=== PATIENT | female | born 1990 | race Caucasian/White ===

== ENCOUNTER 2020-07-15 03:16 | Outpatient (CLI) | payer MEDICAID ==
[2020-07-15 03:35] LABS: APPEARANCE,URINE SLIGHTLY-CLOUDY; BILIRUBIN,URINE NEGATIVE (NEGATIVE); COLOR,URINE YELLOW; GLUCOSE, URINE NEGATIVE (NEGATIVE); KETONES,URINE NEGATIVE (NEGATIVE); LEUKOCYTE ESTERASE,URINE NEGATIVE (NEGATIVE); NITRITE,URINE NEGATIVE (NEGATIVE); PROTEIN,URINE NEGATIVE (NEGATIVE); URINE SPECIFIC GRAVITY 1.006; UROBILINOGEN,URINE NEGATIVE mg/dL (<2.0)
[2020-07-15 04:08] LABS: URINE AMPHETAMINES SCREEN NEGATIVE; URINE BARBITURATES SCREEN NEGATIVE; URINE BENZODIAZEPINES SCREEN NEGATIVE; URINE COCAINE SCREEN NEGATIVE; URINE MARIJUANA (THC) SCREEN NEGATIVE; URINE METHADONE SCREEN NEGATIVE; URINE PHENCYCLIDINE SCREEN NEGATIVE
--- NOTE | 2020-07-15 06:06 | Non Stress Test Report ---
Non Stress Test Datetime Report Generated by CPN: 07/15/2020 06:06 DEMOGRAPHIC EGA NST: 40.1 INDICATION Indication for Study (NST) Other: false labor MONITORING Monitor Explained: Monitor Explained; Test Explained; Patient Verbalized Understanding Time on Monitor: 07/15/2020 03:33 Time off Monitor: 07/15/2020 04:27 NST Duration: 54 NST INTERVENTIONS NST Interventions: PO Hydration Physician Notified NST: Dr. Rene BABY A: [id number] BABY A Movement : Present Contraction Frequency : 3-5 FHR Baseline : 130 Accelerations : 15X15 Decelerations : None Variability : Moderate 6-25bpm NST Review: Meets Criteria for Reactive NST NST Review and Verified By : Alpesh Bellavancdiane RN NST Results: Reactive NST REPORT Report Trigger: Send Report
== END 2020-07-15 05:57 | disposition home or self-care (01) ==
LOC: LC 03:16
PROVIDERS: ATTEND Obstetrics & Gynecology
DX: O47.1 False labor at or after 37 completed weeks of gestation (principal); Z3A.40 40 weeks gestation of pregnancy
CPT/HCPCS: 80307; 81005

== ENCOUNTER 2020-07-18 08:34 | Inpatient (IN) | payer MEDICAID ==
[2020-07-18] MEDS ORDERED: ONDANSETRON HCL INJ/PF 4 MG/2 ML SDV ONE (09:31)
[2020-07-18 09:33] LABS: APPEARANCE,URINE SLIGHTLY-CLOUDY; BILIRUBIN,URINE NEGATIVE (NEGATIVE); COLOR,URINE YELLOW; GLUCOSE, URINE NEGATIVE (NEGATIVE); KETONES,URINE NEGATIVE (NEGATIVE); LEUKOCYTE ESTERASE,URINE TRACE (NEGATIVE); NITRITE,URINE NEGATIVE (NEGATIVE); PROTEIN,URINE NEGATIVE (NEGATIVE); URINE SPECIFIC GRAVITY 1.011; UROBILINOGEN,URINE NEGATIVE mg/dL (<2.0)
[2020-07-18 09:57] LABS: URINE AMPHETAMINES SCREEN NEGATIVE; URINE BARBITURATES SCREEN NEGATIVE; URINE BENZODIAZEPINES SCREEN NEGATIVE; URINE COCAINE SCREEN NEGATIVE; URINE MARIJUANA (THC) SCREEN NEGATIVE; URINE METHADONE SCREEN NEGATIVE; URINE PHENCYCLIDINE SCREEN NEGATIVE
[2020-07-18] MEDS ORDERED: ONDANSETRON HCL INJ/PF 4 MG/2 ML SDV IV ONE (10:00)
[2020-07-18] MEDS ORDERED: RINGERS SOLUTION,LACTATED 1,000 ML IV ONE (10:00)
[2020-07-18] MEDS ORDERED: NALBUPHINE HCL INJ 10 MG/1 ML AMPULE ONE (10:26)
[2020-07-18] MEDS ORDERED: PROMETHAZINE HCL INJ 25 MG/1 ML VIAL ONE (10:26)
[2020-07-18] MEDS ORDERED: PROMETHAZINE HCL INJ 25 MG/1 ML VIAL IV ONE (11:03)
[2020-07-18] MEDS ORDERED: NALBUPHINE HCL INJ 10 MG/1 ML AMPULE IV ONE (11:03)
[2020-07-18] MEDS ORDERED: RINGERS SOLUTION,LACTATED 500 ML IV ONE (12:58)
[2020-07-18] MEDS ORDERED: MISOPROSTOL 0.2 MG TABLET ONE (13:19)
[2020-07-18] MEDS ORDERED: OXYTOCIN 10 UNIT/ML VIAL ONE (13:19)
[2020-07-18] MEDS ORDERED: LIDOCAINE 1% INJ-PF (10 MG/ML) 30 ML SDV ONE (13:19)
[2020-07-18] MEDS ORDERED: OXYTOCIN/0.9 % SODIUM CHLORIDE 30 UNIT/500 ML RTUINJ ONE (13:20)
[2020-07-18] MEDS ORDERED: ROPIVACAINE HCL 0.2% INJ/PF (2 MG/ML) 20 ML SDV ONE ×2 (13:20→14:39)
[2020-07-18] MEDS ORDERED: FENTANYL/BUPIVACAINE/NS/PF 300 MCG/150 ML RTUINJ EPI ONE (13:20)
[2020-07-18] MEDS ORDERED: EPHEDRINE SULFATE INJ 50 MG/1 ML AMPULE ONE (13:20)
[2020-07-18 13:23] LABS: ABSOLUTE BASOPHILS # (AUTO) 0.1 10^3/uL (0.0-0.2); ABSOLUTE EOSINOPHILS # (AUTO) 0.1 10^3/uL (0.0-0.6); ABSOLUTE LYMPHOCYTES (AUTO) 0.8 10^3/uL (0.5-4.7); ABSOLUTE MONOCYTES (AUTO) 0.5 10^3/uL (0.1-1.4); ABSOLUTE NEUT (AUTO) 8.2 10^3/uL (1.7-8.2); BASOPHILS % (AUTO) 0.6 % (0-2); EOSINOPHILS % (AUTO) 0.5 % (0-6); HEMATOCRIT 31.2 % (36.0-47.0); HEMOGLOBIN 10.6 g/dL (12.0-15.5); LYMPHOCYTES % (AUTO) 8.7 % (13-45); MEAN CORPUSCULAR HEMOGLOBIN 27.8 pg (27.0-33.4); MEAN CORPUSCULAR VOLUME 82 fl (80-97); MONOCYTES % (AUTO) 5.1 % (3-13); PLATELET COUNT 108 10^3/uL (150-450); RED BLOOD COUNT 3.81 10^6/uL (3.72-5.28); RED CELL DISTRIBUTION WIDTH 13.4 % (11.5-14.0); SEGMENTED NEUTROPHILS % (AUTO) 85.1 % (42-78); TOTAL CELLS COUNTED % (AUTO) 100 %; WHITE BLOOD COUNT 9.7 10^3/uL (4.0-10.5)
--- NOTE | 2020-07-18 14:10 | Admission Physical ---
Datetime Report Generated by CPN: 07/18/2020 14:10 CURRENT ADMISSION Chief Complaint: Uterine Contractions Indication for Induction: Not Applicable Admit Impression : Term, Intrauterine ; Active Labor Admit Plan: Admit to Unit; Initiate Labor Protocol ALLERGIES Medication Allergies: No Medication Allergies: No Known Allergies (07/18/2020) Latex: No Latex Allergies OBSTETRICAL HISTORY EDC: 07/14/2020 00:00 : 1 Para: 0 Term: 0 : 0 SAB: 0 IAB: 0 Ectopic: 0 Livin Cesareans: 0 VBACs: 0 Multiple Births: 0 Gestational Diabetes: No Rh Sensitization: No Incompetent Cervix: No MARY: No Infertility: No ART Treatment: No Uterine Anomaly: No IUGR: No Hx Previous C/S: No Macrosomia: No Hx Loss/Stillborn: No PIH: No Hx : No Placenta Previa/Abruption: No Depression/PP Depression: No PTL/PROM: No Post Hemorrhage: No Current Procedures: Ultrasound Obstetrical History Comments: G1- current SEE RECORDS Alcohol: No Marijuana : No Cocaine: No Other Illicit Drugs: No Cigarettes: Never Smoker. [id number] MEDICAL HISTORY Diabetes: No Blood Transfusion: No Pulmonary Disease (Asthma, TB): No Breast Disease: No Hypertension: No Cigarette Roller Surgery: No Heart Disease: No Hosp/Surgery: Yes Autoimmune Disorder: No Anesthetic Complications: No Kidney Disease: No Abnormal Pap Smear: No Neuro/Epilepsy: No Psychiatric Disorders: No Other Medical Diseases: No Hepatitis/Liver Disease: No Significant Family History: No Varicosities/Phlebitis: No Trauma/Violence : No Thyroid Dysfunction: No Medical History Comments: Rotator cuff injury no surgery INFECTIOUS HISTORY Gonorrhea: No Genital Herpes: No Chlamydia: No Tuberculosis: No Syphilis: No Hepatitis: No HIV/AIDS Exposure: No Rash or Viral Illness: No HPV: No PHYSICAL EXAM General: Normal HEENT: Deferred Neurologic: Normal Thyroid: Deferred Heart: Normal Lungs: Normal Breast: Deferred Back: Deferred Abdomen: Normal Genitourinary Exam: Normal Extremities: Deferred DTRs: Deferred Pelvic Type: Adequate Physical Exam Comments: cervix per RN 3.5/80/0 Vital Signs: Reviewed FETUS A EGA: 40.4 Monitoring: External US FHR- Baseline: 135 Variability: Moderate 6-25bpm FHR Category: Category I Presentation: Vertex Admit Comment: GBS neg augment as needed Dr. Duval attending epidural for pain mgmt PLANS FOR LABOR AND DELIVERY Labor and Delivery: None Pain Management: Epidural Feeding Preference: Breast Benefit of Breast Feed Discussed: Yes Circumcision: N/A INFORMED CONSENT Assignment: Darby Duval MD Signature: with User ID: [email or web address] : with User ID: Hadley
[2020-07-18] MEDS ORDERED: OXYTOCIN/0.9 % SODIUM CHLORIDE 30 UNIT/500 ML RTUINJ IV PRN ×2 (16:30→23:12)
[2020-07-18] MEDS ORDERED: MAG HYDROX/AL HYDROX/SIMETH SUSP 30 ML UDCUP PO PRN (23:12)
[2020-07-18] MEDS ORDERED: MAGNESIUM HYDROXIDE SUSP 30 ML UDCUP PO PRN (23:12)
[2020-07-18] MEDS ORDERED: ACETAMINOPHEN WITH CODEINE #3 TABLET PO PRN (23:12)
[2020-07-18] MEDS ORDERED: DIPH/PERTUSS(ACELL)/TETANUS VAC/PF 0.5 ML SYR (>=10YO) IM PRN (23:12)
[2020-07-18] MEDS ORDERED: ACETAMINOPHEN 650 MG SUPP.RECT PR PRN (23:12)
[2020-07-18] MEDS ORDERED: ACETAMINOPHEN 325 MG TABLET PO PRN (23:12)
[2020-07-18] MEDS ORDERED: DIPHENHYDRAMINE HCL 25 MG CAPSULE PO PRN (23:12)
[2020-07-18] MEDS ORDERED: PSEUDOEPHEDRINE HCL 30 MG TABLET PO PRN (23:12)
[2020-07-18] MEDS ORDERED: FAMOTIDINE 20 MG TABLET PO PRN (23:12)
[2020-07-18] MEDS ORDERED: VARICELLA VACC/PF (1350 UNIT/0.5 ML) 0.5 ML VIAL SUBCUT PRN (23:12)
[2020-07-18] MEDS ORDERED: MEASLES,MUMPS&RUBELLA VACC/PF 0.5 ML VIAL SUBCUT PRN (23:12)
[2020-07-18] MEDS ORDERED: ZOLPIDEM TARTRATE 5 MG TABLET PO PRN (23:12)
[2020-07-18] MEDS ORDERED: BENZOCAINE/MENTHOL AEROSOL SPRAY 56 ML TOP PRN (23:12)
[2020-07-18] MEDS ORDERED: DIBUCAINE 1% OINTMENT 28 GM TP PRN (23:12)
[2020-07-18] MEDS ORDERED: IBUPROFEN 800 MG TABLET PO ONE (23:45)
[2020-07-19] MEDS: ACETAMINOPHEN WITH CODEINE #3 TABLET PO PRN ×2 (02:13→22:12)
[2020-07-19] MEDS: IBUPROFEN 800 MG TABLET PO SCH ×3 (05:20→22:12)
[2020-07-19 07:02] LABS: HEMATOCRIT 25.3 % (36.0-47.0); MEAN CORPUSCULAR HEMOGLOBIN 27.8 pg (27.0-33.4); MEAN CORPUSCULAR HGB CONC 33.7 g/dL (32.0-36.0); MEAN CORPUSCULAR VOLUME 83 fl (80-97); RED BLOOD COUNT 3.07 10^6/uL (3.72-5.28); RED CELL DISTRIBUTION WIDTH 13.8 % (11.5-14.0); WHITE BLOOD COUNT 10.9 10^3/uL (4.0-10.5)
[2020-07-19 08:28] LABS: HEMOGLOBIN 8.5 g/dL (12.0-15.5)
[2020-07-19 08:31] LABS: PLATELET COUNT 92 10^3/uL (150-450)
[2020-07-19] MEDS: DOCUSATE SODIUM 100 MG CAPSULE PO SCH ×2 (09:34→18:55)
[2020-07-19] MEDS: FERROUS SULFATE 325 MG TABLET PO SCH ×2 (09:34→18:55)
[2020-07-19] MEDS: SENNOSIDES/DOCUSATE 8.6-50 MG 1 EACH TABLET PO SCH (09:34)
[2020-07-19] MEDS: PRENATAL VITAMIN W DHA CAPSULE PO SCH (09:44)
--- NOTE | 2020-07-19 11:41 | PDOC PROGRESS REPORT ---
Subjective-OB Progress Note for:: 07/19/20 Subjective: reports bleeding slowing, pain controlled with current meds. c/o cough Physical Exam (OB) Vital Signs: Temp Pulse Resp BP Pulse Ox 97.4 F 65 16 112/56 L 97 07/19/20 08:00 07/19/20 08:00 07/19/20 08:00 07/19/20 08:00 07/19/20 08:00 Intake & Output 07/18/20 07/19/20 07/20/20 06:59 06:59 06:59 Intake Total 1000 300 Balance 1000 300 Weight 74 kg - Maternal Morbidity 59. Maternal Morbidity (serious complications experinced by the mother associated with labor and delivery: None of the above - Abdomen Description: Soft, Round Hernia Present: No Fundal Description: Firm, Midline Fundal Height: u/u - u/2 - Respiratory Breath sounds: Clear - Abdominal Distension: No distension Tenderness: Nontender - Extremities Lower extremities: Rajendra's sign - neg Knee: Normal, Nontender Objective-Diagnostic Laboratory: 07/19/20 06:14 07/18/20 07/18/20 07/19/20 13:09 13:09 06:14 WBC 9.7 10.9 H RBC 3.81 3.07 L Hgb 10.6 L 8.5 L D Hct 31.2 L 25.3 L MCV 82 83 MCH 27.8 27.8 MCHC 34.0 33.7 RDW 13.4 13.8 Plt Count 108 L 92 L Seg Neutrophils % 85.1 H Blood Type A POSITIVE Antibody Screen NEGATIVE Assessment and Plan(PN) - Assessment and Plan (1) Normal vaginal delivery Is this a current diagnosis for this admission?: Yes (2) Cough Is this a current diagnosis for this admission?: Yes (3) Lab test negative for COVID-19 virus Is this a current diagnosis for this admission?: Yes (4) Active labor at term Is this a current diagnosis for this admission?: Yes - Time Spent with Patient Time with patient: Less than 15 minutes Medications reviewed and adjusted accordingly: Yes - Disposition Anticipated Discharge Disposition: Home, Self Care Anticipated Discharge Timeframe: within 24 hours
[2020-07-19] MEDS: GUAIFENESIN 600 MG TABLET.SA PO SCH ×2 (12:03→22:12)
[2020-07-20] MEDS: IBUPROFEN 800 MG TABLET PO SCH (05:39)
[2020-07-20] MEDS: GLYCERIN/WITCH HAZEL LEAF 1 EACH MED..WIPE TP PRN ×2 (05:42→10:23)
[2020-07-20 07:19] LABS: ABSOLUTE EOSINOPHILS # (AUTO) 0.3 10^3/uL (0.0-0.6); ABSOLUTE LYMPHOCYTES (AUTO) 1.1 10^3/uL (0.5-4.7); ABSOLUTE MONOCYTES (AUTO) 0.5 10^3/uL (0.1-1.4); ABSOLUTE NEUT (AUTO) 7.8 10^3/uL (1.7-8.2); BASOPHILS % (AUTO) 0.4 % (0-2); EOSINOPHILS % (AUTO) 2.9 % (0-6); HEMATOCRIT 26.8 % (36.0-47.0); HEMOGLOBIN 8.9 g/dL (12.0-15.5); LYMPHOCYTES % (AUTO) 11.9 % (13-45); MEAN CORPUSCULAR HEMOGLOBIN 27.8 pg (27.0-33.4); MEAN CORPUSCULAR HGB CONC 33.4 g/dL (32.0-36.0); MEAN CORPUSCULAR VOLUME 84 fl (80-97); MONOCYTES % (AUTO) 4.7 % (3-13); RED BLOOD COUNT 3.21 10^6/uL (3.72-5.28); RED CELL DISTRIBUTION WIDTH 13.8 % (11.5-14.0); SEGMENTED NEUTROPHILS % (AUTO) 80.1 % (42-78); TOTAL CELLS COUNTED % (AUTO) 100 %; WHITE BLOOD COUNT 9.7 10^3/uL (4.0-10.5)
[2020-07-20 07:52] VITALS: BP 136/52
[2020-07-20 07:54] LABS: PLATELET COUNT 100 10^3/uL (150-450)
--- NOTE | 2020-07-20 09:14 | PDOC PROGRESS REPORT ---
Subjective-OB Progress Note for:: 07/20/20 Subjective: Doing well, ready to go home, hsb at BS, , scant lochia, voiding, no BM, eating well Physical Exam (OB) Vital Signs: Temp Pulse Resp BP Pulse Ox 97.9 F 57 L 18 136/52 H 96 07/20/20 07:51 07/20/20 07:51 07/20/20 07:51 07/20/20 07:51 07/20/20 07:51 Intake & Output 07/19/20 07/20/20 07/21/20 06:59 06:59 06:59 Intake Total 1000 420 Balance 1000 420 Weight 74 kg - PIH/Pre-Eclampsia DTR's: 2 + Clonus: Negative Headache: Absent Epigastric Pain: No Visual Changes: No - Maternal Morbidity 59. Maternal Morbidity (serious complications experinced by the mother associated with labor and delivery: None of the above - Lochia Lochia Amount: Scant < 10 ml Lochia Color: Rubra/Red - Abdomen Description: Soft, Flat Hernia Present: No Fundal Description: Firm, Midline Fundal Height: u/u - u/2 Objective-Diagnostic Laboratory: 07/20/20 06:28 07/20/20 06:28 WBC 9.7 RBC 3.21 L Hgb 8.9 L Hct 26.8 L MCV 84 MCH 27.8 MCHC 33.4 RDW 13.8 Plt Count 100 L Seg Neutrophils % 80.1 H Assessment and Plan(PN) - Assessment and Plan (1) Post-dates Qualifiers: Post-term type: 40-42 weeks gestation Qualified Code(s): O48.0 - Post-term Is this a current diagnosis for this admission?: Yes (2) Third degree perineal laceration during delivery, IIIa Is this a current diagnosis for this admission?: Yes (3) Normal vaginal delivery Is this a current diagnosis for this admission?: Yes (4) Cough Is this a current diagnosis for this admission?: Yes (5) Lab test negative for COVID-19 virus Is this a current diagnosis for this admission?: Yes (6) Active labor at term Is this a current diagnosis for this admission?: Yes - Time Spent with Patient Time with patient: Less than 15 minutes Medications reviewed and adjusted accordingly: Yes - Disposition Anticipated Discharge Disposition: Home, Self Care Anticipated Discharge Timeframe: within 24 hours
--- NOTE | 2020-07-20 09:19 | PDOC DISCHARGE SUMMARY ---
Impression - Admit/DC Date/PCP Admission Date/Primary Care Provider: 07/18/20 12:40 YVES BECK MD Discharge Date: 07/20/20 - Discharge Diagnosis (1) Post-dates Is this a current diagnosis for this admission?: Yes (2) Third degree perineal laceration during delivery, IIIa Is this a current diagnosis for this admission?: Yes (3) Normal vaginal delivery Is this a current diagnosis for this admission?: Yes (4) Cough Is this a current diagnosis for this admission?: Yes (5) Lab test negative for COVID-19 virus Is this a current diagnosis for this admission?: Yes (6) Active labor at term Is this a current diagnosis for this admission?: Yes - Additional Information Resuscitation Status: Full Code Discharge Diet: As Tolerated Discharge Activity: Activity As Tolerated, No Lifting Over 10 Pounds, No Lifting/Push/Pulling, Pelvic Rest Referrals: YVSE BECK MD [Primary Care Provider] - (rtc 1 wk check third degree) Prescriptions: Ibuprofen [Motrin 800 mg Tablet] 800 mg PO Q8 #30 tablet Home Medications: 95/Iron Fum/Folic/Dha [ + Dha Combo Pack] 1 tab PO DAILY 07/15/20 Ibuprofen [Motrin 800 mg Tablet] 800 mg PO Q8 #30 tablet 07/20/20 HPI Gestational Age: 40.4 Reason(s) for Admission: Onset of Labor Admission Note: augmentation Procedures: NST, Ultrasound Intrapartum Procedure(s): Spontaneous Vaginal Delivery Complication(s): Laceration-Perineal Laceration-Degree: 3rd Hospital Course Hospital Course: routine, no complaints 59. Maternal Morbidity (serious complications experinced by the mother associated with labor and delivery: None of the above Results Laboratory Results: WBC 9.7 10^3/uL (4.0-10.5) 07/20/20 06:28 RBC 3.21 10^6/uL (3.72-5.28) L 07/20/20 06:28 Hgb 8.9 g/dL (12.0-15.5) L 07/20/20 06:28 Hct 26.8 % (36.0-47.0) L 07/20/20 06:28 MCV 84 fl (80-97) 07/20/20 06:28 MCH 27.8 pg (27.0-33.4) 07/20/20 06:28 MCHC 33.4 g/dL (32.0-36.0) 07/20/20 06:28 RDW 13.8 % (11.5-14.0) 07/20/20 06:28 Plt Count 100 10^3/uL (150-450) L 07/20/20 06:28 Lymph % (Auto) 11.9 % (13-45) L 07/20/20 06:28 [place] % (Auto) 4.7 % (3-13) 07/20/20 06:28 Eos % (Auto) 2.9 % (0-6) 07/20/20 06:28 Baso % (Auto) 0.4 % (0-2) 07/20/20 06:28 Absolute Neuts (auto) 7.8 10^3/uL (1.7-8.2) 07/20/20 06:28 Absolute Lymphs (auto) 1.1 10^3/uL (0.5-4.7) 07/20/20 06:28 Absolute Monos (auto) 0.5 10^3/uL (0.1-1.4) 07/20/20 06:28 Absolute Eos (auto) 0.3 10^3/uL (0.0-0.6) 07/20/20 06:28 Absolute Basos (auto) 0.0 10^3/uL (0.0-0.2) 07/20/20 06:28 Seg Neutrophils % 80.1 % (42-78) H 07/20/20 06:28 Urine Color YELLOW 07/18/20 08:55 Urine Appearance SLIGHTLY-CLOUDY 07/18/20 08:55 Urine pH 7.0 (5.0-9.0) 07/18/20 08:55 Ur Specific Mccam[place] 1.011 07/18/20 08:55 Urine Protein NEGATIVE mg/dL (NEGATIVE) 07/18/20 08:55 Urine Glucose (UA) NEGATIVE mg/dL (NEGATIVE) 07/18/20 08:55 Urine Ketones NEGATIVE mg/dL (NEGATIVE) 07/18/20 08:55 Urine Blood SMALL (NEGATIVE) H 07/18/20 08:55 Urine Nitrite NEGATIVE (NEGATIVE) 07/18/20 08:55 Urine Bilirubin NEGATIVE (NEGATIVE) 07/18/20 08:55 Urine Urobilinogen NEGATIVE mg/dL (<2.0) 07/18/20 08:55 Ur Leukocyte Esterase TRACE (NEGATIVE) H 07/18/20 08:55 Urine Ascorbic Acid NEGATIVE (NEGATIVE) 07/18/20 08:55 Urine Opiates Screen NEGATIVE 07/18/20 08:55 Urine Methadone Screen NEGATIVE 07/18/20 08:55 Ur Barbiturates Screen NEGATIVE 07/18/20 08:55 Ur Phencyclidine Scrn NEGATIVE 07/18/20 08:55 Ur Amphetamines Screen NEGATIVE 07/18/20 08:55 U Benzodiazepines Scrn NEGATIVE 07/18/20 08:55 Urine Cocaine Screen NEGATIVE 07/18/20 08:55 U Marijuana (THC) Screen NEGATIVE 07/18/20 08:55 RPR NONREACTIVE (NONREACTIVE) 07/18/20 13:09 Influenza A (RT-PCR) NEGATIVE (NEGATIVE) 07/18/20 09:23 Influenza B (RT-PCR) NEGATIVE (NEGATIVE) 07/18/20 09:23 RSV (RT-PCR) NEGATIVE (NEGATIVE) 07/18/20 09:23 SARS-CoV-2 Rap RNA(RT-PCR) NEGATIVE (NEGATIVE) 07/18/20 09:23 Blood Type A POSITIVE 07/18/20 13:09 Antibody Screen NEGATIVE 07/18/20 13:09 Plan Health Concerns: third degree, nothing in rectum, colace, no straining to have BM Plan of Treatment: dc home, rev S&S to report, rtc 1 week Goals: no complications Time Spent: Less than 30 Minutes
[2020-07-20] MEDS: DOCUSATE SODIUM 100 MG CAPSULE PO SCH (09:37)
[2020-07-20] MEDS: FERROUS SULFATE 325 MG TABLET PO SCH (09:37)
[2020-07-20] MEDS: SENNOSIDES/DOCUSATE 8.6-50 MG 1 EACH TABLET PO SCH (09:37)
[2020-07-20] MEDS: GUAIFENESIN 600 MG TABLET.SA PO SCH (09:37)
[2020-07-20] MEDS: PRENATAL VITAMIN W DHA CAPSULE PO SCH (10:22)
--- NOTE | 2020-07-24 08:40 | Delivery Summary ---
Del Sum A-C Datetime Report Generated by CPN: 07/24/2020 08:40 DELIVERY PERSONNEL DELIVERY PERSONNEL: [id number] Delivery Doctor:: Darby Duval MD Labor and Delivery Nurse:: IVANA Green Labor and Delivery Nurse:: Daphnie Deweyshara RN MATERNAL INFORMATION Delivery Anesthesia: Epidural Medications After Delivery: Pitocin 30 Units in 500ml NS/D5W; Pitocin Drip 20 Units/1000ml NSS Estimated Blood Loss (ml): 200 Delivery QBL: 200 Maternal Complications: None Provider Comments: Called to patients room as she was complete and +3 Pushed during one contraction and delivered a viable female infant. After delivery of the head, the shoulders and rest of the body followed easily. vigorous at delivery and cord clamping delayed for 30 seconds. Cord doubly clamped and cut. placed skin to skin after oral suctioning. Fundus firm. Both mother and stable. Repair as above of perineum. LABOR SUMMARY EDC: 07/14/2020 00:00 No. Babies in Womb: 1 Attempted: No Labor Anesthesia: Epidural LABOR INFORMATION Reason for Induction: Not Applicable Onset of Labor: 07/18/2020 06:40 Complete Dilatation: 07/18/2020 20:48 Oxytocin: Augmentation Group B Beta Strep: negative Antibiotics # of Doses: n/a Name of Antibiotic Given: n/a Steroids Given: None Reason Steroids Not Administered: Not Applicable MEMBRANES Membranes Rupture Method: Artificial Rupture of Membranes: 07/18/2020 15:11 Length of Rupture (hr): 6.82 Amniotic Fluid Color: Clear Amniotic Fluid Amount: Small Amniotic Fluid Odor: Normal STAGES OF LABOR Stage 1 hr: 14 Stage 1 min: 8 Stage 2 hr: 1 Stage 2 min: 12 Stage 3 hr: 0 Stage 3 min: 4 Total Time in Labor hr: 15 Total Time in Labor min: 24 VAGINAL DELIVERY Episiotomy: None Laceration #1: Perineal Laceration Extension #1: Third Degree, IIIa (Less than 50 percent ext anal sphincter thickness torn) Laceration Repair: Yes Laceration Repair Note: Repaired in a layered closure with 2-0 chromic. Only a small amount of the superior rectal muscle sheath tore. This was repaired in interrupted sutures. Sponge Count Correct: Yes Sharps Count Correct: Yes CSECTION DELIVERY Primary Indication: N/A Secondary Indication: N/A CSection Incidence: N/A Labor: N/A Elective: N/A CSection Incision: N/A BABY A INFORMATION Infant Delivery Date/Time: 07/18/2020 22:00 Method of Delivery: Vaginal Nurse Controlled Delivery: No Born in Route : No : N/A Forceps: N/A Vacuum Extraction: N/A Shoulder Dystocia : No PRESENTATION/POSITION BABY A Presentation: Cephalic Presentation: Cephalic Cephalic Presentation: Vertex Vertex Position: Left Occipital Anterior Breech Presentation: N/A PLACENTA INFORMATION BABY A Placenta Delivery Time : 07/18/2020 22:04 Placenta Method of Delivery: Spontaneous Placenta Status: Delivered SCORES BABY A Heart Rate 1 min: >100 bpm Resp Effort 1 min: Good Cry Reflex Irritability 1 min: Cough or Sneeze or Pulls Away Muscle Tone 1 min: Active Motion Color 1 min: Body [place], Extremities Blue Resuscitation Effort 1 min: Tactile Stimulation SCORE 1 MIN: 9 Heart Rate 5 min: >100 bpm Resp Effort 5 min: Good Cry Reflex Irritability 5 min: Cough or Sneeze or Pulls Away Muscle Tone 5 min: Active Motion Color 5 min: Body [place], Extremities Blue Resuscitation Effort 5 min: Tactile Stimulation SCORE 5 MIN: 9 INFANT INFORMATION BABY A Gestational Age at Delivery: 40.4 Gestational Status: Full Term- 39- 40.6 Weeks Infant Outcome : Liveborn Condition : Stable Sex: Female IDENTIFICATION BABY A Verification Date/Time: 07/18/2020 22:09 ID Band Number: [id number] Mother's Name Verified: Yes Infant RN Verifying : Adama SteinbergLUCIAN Additional Verifying Personnel: Odell Mcintosh RN WEIGHT/LENGTH BABY A Birthweight (gm): 3050 Weight (lb): 6 Infant Weight (oz): 12 Length (in): 19.50 Length (cm): 49.53 CORD INFORMATION BABY A No. Cord Vessels: 3 Nuchal Cord : N/A Cord Blood Taken: Yes-For Storage (Mom's Blood type +) Suction: Mouth (Annotations: Data stored by [facility] on behalf of user) ASSESSMENT BABY A Infant Complications: None Physical Findings at Delivery: Within Normal Limits Respirations: Appears Normal Skin to Skin: Yes Parking Lot Spotter/ALS Called : No Infant Care By: D Bellavance RN Transferred To: Remains with Mother BABY B INFORMATION : N/A SIGNATURES Signature: with User ID: Geoffrey : with User ID: Geoffrey : I was personally available for consultation and serving as supervising physician for the MLP.
== END 2020-07-20 11:39 | disposition home or self-care (01) | DRG 768 ==
LOC: LC 08:34 → LR 12:40 → 2S 07-19 00:45
PROVIDERS: ADMIT Obstetrics & Gynecology; ATTEND Obstetrics & Gynecology
PROC: 10E0XZZ Delivery of Products of Conception, External Approach (ICD-10-PCS; principal; 2020-07-18)
PROC: 0DQR0ZZ Repair Anal Sphincter, Open Approach (ICD-10-PCS; 2020-07-18)
DX: O70.21 Third degree perineal laceration during delivery, IIIa (principal); Z37.0 Single live birth; Z20.822 Contact with and (suspected) exposure to COVID-19; P08.21 Post-term newborn; Z3A.40 40 weeks gestation of pregnancy
CPT/HCPCS: 1967; 36415; 80307; 81005; 85025; 85027; 86592; 86850; 86900; 86901; 94760; 0241U; C9803; J2300; J2405; J2550; J2590; J2795; J3010; J3490